=== PATIENT | female | born 1955 | race American Indian/Alaskan Native ===

== ENCOUNTER 2017-03-05 21:05 | Emergency (ER) | payer BC ==
[2017-03-05 22:35] LABS: Hematocrit 40.5 % (30.3-42.9); Hemoglobin 13.4 gm/dl (10.1-14.3); Mean Corpuscular HGB Conc 33 % (30-34); Mean Corpuscular Hemoglobin 30 pg (28-32); Mean Corpuscular Volume 91 fl (79-97); Platelet Count 212 K/mm3 (140-440); Red Blood Count 4.47 M/mm3 (3.65-5.03); Red Cell Distribution Width 13.9 % (13.2-15.2); White Blood Count 5.8 K/mm3 (4.5-11.0)
[2017-03-05 22:41] LABS: Basophils % (Auto) 0.8 % (0.0-1.8); Eosinophils % (Auto) 1.6 % (0.0-4.3)
[2017-03-05 22:49] LABS: Anion Gap 20 mmol/L; BUN/Creatinine Ratio 25; Blood Urea Nitrogen 20 mg/dL (7-17); Calcium 9.6 mg/dL (8.4-10.2); Carbon Dioxide 24 mmol/L (22-30); Chloride 101.5 mmol/L (98-107); Glucose 103 mg/dL (65-100); INR 0.92 (0.87-1.13); Potassium 4.1 mmol/L (3.6-5.0); Sodium 141 mmol/L (137-145)
--- NOTE | 2017-03-05 23:10 | Cat Scan Report ---
FINAL REPORT PROCEDURE: CT HEAD/BRAIN WO CON TECHNIQUE: Computerized tomography of the head was performed without contrast material. HISTORY: S/P fall with OROPEZA COMPARISON: No prior studies are available for comparison. FINDINGS: Skull and scalp: Right parietal soft tissue swelling. Paranasal sinuses: Normal. Ventricles and subarachnoid spaces: Normal. Cerebrum: No evidence of hemorrhage, acute infarction or mass . Cerebellum and brainstem: No evidence of hemorrhage, acute infarction or mass. Vasculature: Normal. Comments: None. IMPRESSION: Normal CT brain. Soft tissue swelling.
[2017-03-06] MEDS ORDERED: TYLENOL PO ONE (00:55)
[2017-03-06] MEDS ORDERED: TYLENOL ONE (00:56)
[2017-03-06 03:09] LABS: Bacteria,Urine 1+ /HPF (Negative); Bilirubin,Urine NEG (Negative); Blood,Urine SM (Negative); Ketones,Urine NEG (Negative); Leukocyte Esterase,Urine LG (Negative); Mucus,Urine FEW /HPF; Nitrite,Urine NEG (Negative); Protein,Urine <15 mg/dL mg/dL (Negative); Urobilinogen,Urine < 2.0 mg/dL (<2.0)
[2017-03-06] MEDS ORDERED: NORCO 5/325 PO ONE (08:15)
[2017-03-06 08:20] VITALS: BP 131/93
--- NOTE | 2017-03-06 08:22 | Emergency Department Report ---
HPI - General Chief Complaint: Fall Time Seen by Provider: 03/06/17 08:08 - HPI HPI: Room 7 The patient is a 62-year-old female presenting with a chief complaint of pain after fall. The patient states last night she was going down stairs when she tripped and twisted falling striking the back of her head. Patient states she fell down approximate 4 stairs but never lost consciousness. Patient complains of pain in her head and neck but denies any other pain. Patient denies nausea or vomiting but admitted to some lightheadedness. The patient gives her pain score of 9/10 Location: Head, neck Duration: Began last night Quality: Pain Severity:9/10 Modifying factors: [see above] Context: [see above] Mode of transportation: [not driving] ED Past Medical Hx - Past Medical History Previous Medical History?: No - Surgical History Past Surgical History?: No - Family History Family history: no significant - Social History Smoking Status: Never Smoker Substance Use Type: None - Medications Home Medications: Home Medications Medication Instructions Recorded Confirmed Last Taken Type Cyclobenzaprine [Flexeril] 10 mg PO TID PRN #10 tablet 03/06/17 Unknown Rx HYDROcodone/APAP 5-325 [[place] 1 each PO Q6HR PRN #10 tablet 03/06/17 Unknown Rx 5/325] Ibuprofen [Motrin 800 MG tab] 800 mg PO Q8HR PRN #20 tablet 03/06/17 Unknown Rx Sulfamethoxazole/Trimethoprim 1 each PO BID #6 tablet 03/06/17 Unknown Rx [Bactrim DS TAB] ED Review of Systems ROS: Stated complaint: FALL Other details as noted in HPI Eyes: denies: eye pain ENT: denies: throat pain Cardiovascular: denies: chest pain Gastrointestinal: denies: abdominal pain Genitourinary: denies: dysuria Musculoskeletal: myalgia. denies: back pain Neurological: headache Physical Exam - Physical Exam Vital Signs: Vital Signs 03/05/17 03/06/17 03/06/17 22:04 01:00 03:29 Temperature 98.4 F 97.6 F Pulse Rate 87 79 Respiratory 18 18 14 Rate Blood Pressure 146/87 128/104 O2 Sat by Pulse 97 100 Oximetry Physical Exam: GENERAL: The patient is well-developed well-nourished female lying on stretcher not appearing to be in acute distress. [] HEENT: Normocephalic. Atraumatic. Extraocular motions are intact. Patient has moist mucous membranes. NECK: Supple. No actual step offs. Patient has left lateral paraspinous tenderness CHEST/LUNGS: Clear to auscultation. There is no respiratory distress noted. HEART/CARDIOVASCULAR: Regular. There is no tachycardia. There is no gallop rub or murmur. ABDOMEN: Abdomen is soft, nontender. Patient has normal bowel sounds. There is no abdominal distention. SKIN: There is no rash. There is no edema. There is no diaphoresis. NEURO: The patient is awake, alert, and oriented. The patient is cooperative. The patient has no focal neurologic deficits. The patient has normal speech. Cranial nerves II through XII grossly intact, no drift, MUSCULOSKELETAL: There is no evidence of acute injury. ED Course Vital Signs 03/05/17 03/06/17 03/06/17 22:04 01:00 03:29 Temperature 98.4 F 97.6 F Pulse Rate 87 79 Respiratory 18 18 14 Rate Blood Pressure 146/87 128/104 O2 Sat by Pulse 97 100 Oximetry ED Medical Decision Making - Lab Data Result diagrams: 03/05/17 22:21 03/05/17 22:21 Laboratory Tests 03/05/17 03/05/17 03/05/17 22:21 22:21 22:21 WBC 5.8 RBC 4.47 Hgb 13.4 Hct 40.5 MCV 91 MCH 30 MCHC 33 RDW 13.9 Plt Count 212 Lymph % (Auto) 49.2 H [place] % (Auto) 8.0 H Eos % (Auto) 1.6 Baso % (Auto) 0.8 Lymph # 2.9 [place] # 0.5 Eos # 0.1 Baso # 0.0 Seg Neutrophils % 40.4 Seg Neutrophils # 2.3 PT 12.8 INR 0.92 Sodium 141 Potassium 4.1 Chloride 101.5 Carbon Dioxide 24 Anion Gap 20 BUN 20 H Creatinine 0.8 Estimated GFR > 60 BUN/Creatinine Ratio 25 Glucose 103 H Calcium 9.6 Urine Color Urine Turbidity Urine pH Ur Specific [place] Urine Protein Urine Glucose (UA) Urine Ketones Urine Blood Urine Nitrite Urine Bilirubin Urine Urobilinogen Ur Leukocyte Esterase Urine WBC (Auto) Urine RBC (Auto) U Epithel Cells (Auto) Urine Bacteria (Auto) Hyaline Casts Urine Mucus 03/06/17 01:08 WBC RBC Hgb Hct MCV MCH MCHC RDW Plt Count Lymph % (Auto) [place] % (Auto) Eos % (Auto) Baso % (Auto) Lymph # [place] # Eos # Baso # Seg Neutrophils % Seg Neutrophils # PT INR Sodium Potassium Chloride Carbon Dioxide Anion Gap BUN Creatinine Estimated GFR BUN/Creatinine Ratio Glucose Calcium Urine Color Yellow Urine Turbidity Hazy Urine pH 5.0 Ur Specific [place] 1.019 Urine Protein <15 mg/dl Urine Glucose (UA) Neg Urine Ketones Neg Urine Blood Sm Urine Nitrite Neg Urine Bilirubin Neg Urine Urobilinogen < 2.0 Ur Leukocyte Esterase Lg Urine WBC (Auto) 37.0 H Urine RBC (Auto) 3.0 U Epithel Cells (Auto) 6.0 Urine Bacteria (Auto) 1+ Hyaline Casts 1 Urine Mucus Few - Radiology Data Radiology results: report reviewed (CT head, CT cervical spine), image reviewed (CT head, CT cervical spine) CT CERVICAL SPINE WITHOUT CONTRAST INDICATION: Pain after fall. COMPARISON: None similar. FINDINGS: Noncontrast axial, sagittal and coronal CT reconstructions through the cervical spine demonstrate slight cervical kyphosis/reversal of usual lordosis with the apex about C4-C5. Mild C3-C5 degenerative spurring, greatest anteroinferior at C4. Normal vertebral body stature. Grossly preserved disc heights without definite large disc protrusion or cord compression. Assessment of the spinal canal itself compromised from C7 inferiorly due to artifact from shoulder soft tissues. Normal imaged posterior fossa, craniocervical articulation, dens, prevertebral soft tissues and the airway. Normal size thyroid. Clear imaged lung apices. CONCLUSION: No acute cervical spine CT abnormality with few degenerative changes, as above. Thank you for the opportunity to participate in this patient's care. Transcribed By: RS Dictated By: MARCIAL MCMAHAN MD Electronically Authenticated By: MARCIAL MCMAHAN MD Signed Date/Time: 03/06/17845 DD/ 8 TD/TT: 03/06/17845 - Differential Diagnosis closed head injury, cervical fracture, ICH, cervical strain Critical care attestation.: If time is entered above; I have spent that time in minutes in the direct care of this critically ill patient, excluding procedure time. ED Disposition Clinical Impression: Closed head injury, Acute cervical myofascial strain, UTI (urinary tract infection) Disposition: DC-01 TO HOME OR SELFCARE Is pt being admited?: No Does the pt Need Aspirin: No Condition: Stable Instructions: Muscle Strain (ED) Additional Instructions: Return to the emergency department immediately should you develop worsening symptoms, fever, inability to tolerate food or liquid or any other concerns. Prescriptions: Cyclobenzaprine [Flexeril] 10 mg PO TID PRN #10 tablet PRN Reason: Muscle Spasm HYDROcodone/APAP 5-325 [[place] 5/325] 1 each PO Q6HR PRN #10 tablet PRN Reason: Pain Ibuprofen [Motrin 800 MG tab] 800 mg PO Q8HR PRN #20 tablet PRN Reason: Pain Sulfamethoxazole/Trimethoprim [Bactrim DS TAB] 1 each PO BID #6 tablet Referrals: RADHA KIM MD [Primary Care Provider] - 3-5 Days Time of Disposition: 09:02
--- NOTE | 2017-03-06 08:53 | Cat Scan Report ---
CT CERVICAL SPINE WITHOUT CONTRAST INDICATION: Pain after fall. COMPARISON: None similar. FINDINGS: Noncontrast axial, sagittal and coronal CT reconstructions through the cervical spine demonstrate slight cervical kyphosis/reversal of usual lordosis with the apex about C4-C5. Mild C3-C5 degenerative spurring, greatest anteroinferior at C4. Normal vertebral body stature. Grossly preserved disc heights without definite large disc protrusion or cord compression. Assessment of the spinal canal itself compromised from C7 inferiorly due to artifact from shoulder soft tissues. Normal imaged posterior fossa, craniocervical articulation, dens, prevertebral soft tissues and the airway. Normal size thyroid. Clear imaged lung apices. CONCLUSION: No acute cervical spine CT abnormality with few degenerative changes, as above. Thank you for the opportunity to participate in this patient's care.
== END 2017-03-06 09:07 | disposition home or self-care (01) ==
LOC: ED 21:05
DX: S09.8XXA Other specified injuries of head, initial encounter (principal); S16.1XXA Strain of muscle, fascia and tendon at neck level, initial encounter; N39.0 Urinary tract infection, site not specified; W01.0XXA Fall on same level from slipping, tripping and stumbling without subsequent striking against object, initial encounter; Y93.89 Activity, other specified; Y92.89 Other specified places as the place of occurrence of the external cause; Y99.8 Other external cause status
CPT/HCPCS: 36415; 70450; 72125; 80048; 81001; 85025; 85610; 93005; 93010